=== PATIENT | male | born 2000 | race Caucasian/White ===

== ENCOUNTER 2018-05-01 09:50 | Emergency (ER) | payer MEDICAID ==
--- NOTE | 2018-05-01 10:44 | EDPHY ---
H & P Time Seen by Provider: 05/01/18 10:04 HPI/ROS: Chief complaint. Sore throat HPI. 17-year-old male presents with sore throat for 1 day. He had a flu shot 2 weeks ago and feels he has been somewhat sick since then. It hurts to swallow. He feels somewhat worse on the right side. He has some cough. No fever. He has sick contacts that have strep. No chest pain or shortness of breath. No abdominal pain. No vomiting or diarrhea. No rash. ROS 10 systems were reviewed and negative with the exception of the elements mentioned in the history of present illness Past Medical/Surgical History: GERD Social History: Single, nonsmoker, no alcohol Smoking Status: Never smoked Physical Exam: General Appearance: Alert pleasant well-developed male mild distress vital signs are stable Eyes: Pupils equal and round no pallor or injection. ENT, tympanic membranes are normal. Pharynx injected with exudate. Both tonsils mildly swollen but there is no evidence for CUSTOMS APPRAISER. No stridor. Speech is normal. Swallowing secretions Respiratory: There are no retractions, lungs are clear to auscultation. Cardiovascular: Regular rate and rhythm. Gastrointestinal: Abdomen is soft and nontender, no masses, bowel sounds normal. Neurological: Awake and alert, sensory and motor exams grossly normal. Skin: Warm and dry, no rashes. Musculoskeletal: Neck is supple nontender. Extremities symmetrical, full range of motion. Psychiatric: Patient is oriented X 3, there is no agitation. Constitutional: Initial Vital Signs Temperature (C) 36.3 C 05/01/18 09:53 Heart Rate 98 05/01/18 09:53 Respiratory Rate 18 05/01/18 09:53 Blood Pressure 123/65 H 05/01/18 09:53 O2 Sat (%) 95 05/01/18 09:53 O2 Delivery Mode Room Air Allergies/Adverse Reactions: No Known Allergies Allergy (Unverified 05/01/18 09:55) Home Medications: Medication Instructions Recorded Penicillin V Potassium [Penicillin 500 mg PO TID #20 tab 05/01/18 VK] Ranitidine HCl 05/01/18 Medical Decision Making Procedures: RSS is positive for strep Patient given Decadron and 1st dose penicillin in the emergency department ED Course/Re-evaluation: Re-evaluation patient is stable. He and I discussed laboratory findings, treatment plan including criteria for return importance of follow-up. We also discussed possibility a developing peritonsillar abscess though there does not seem to be evidence of 1 now. He expresses understanding and agreement Differential Diagnosis: I considered viral pharyngitis, strep pharyngitis, peritonsillar abscess - Data Points Laboratory Results: 05/01/18 10:00 Group A Strep Screen POSITIVE H (NEGATIVE) Departure - Departure Disposition: Home, Routine, Self-Care Clinical Impression: Acute streptococcal pharyngitis Condition: Good Instructions: Strep Throat (ED) Additional Instructions: Drink plenty of fluids and stay hydrated Tylenol 1000 mg every 4-6 hours, ibuprofen 600 mg every 6 hr as needed for fever Return for worsening pain trouble swallowing or feeling that you are developing swelling or lump on 1 tonsil or the other Re-evaluation in 2 days if not improving Referrals: NONE *PRIMARY CARE P,. [Primary Care Provider] - As per Instructions [facility] [Outside] - As per Instructions Lorena Woodruff MD [Medical Doctor] - 2-3 days, if not improved Prescriptions: Penicillin V Potassium [Penicillin VK] 500 mg PO TID #20 tab
[2018-05-01] MEDS ORDERED: PENICILLIN VK 500 MG TAB PO ONE (10:52)
[2018-05-01] MEDS ORDERED: DEXAMETHASONE 4 MG TAB PO ONE (10:52)
[2018-05-01 11:09] VITALS: BP 122/74
== END 2018-05-01 11:08 | disposition home or self-care (01) ==
DX: J02.0 Streptococcal pharyngitis (principal)